=== PATIENT | male | born 1990 | race Caucasian/White ===

== ENCOUNTER 2018-11-23 13:01 | Emergency (ER) | payer BC ==
--- NOTE | 2018-11-23 13:53 | EDPHYS ---
Physician Documentation [facility] Name: Cuate Benson Age: 28 yrs Sex: Male : 1990 Arrival Date: 11/23/2018 Time: 13:05 Bed 10 Private MD: ED Physician Kristopher Lynne HPI: 11/23 13:43 This 28 yrs old Male presents to ER via Ambulatory with complaints of Sore jr8 Throat. 13:43 The patient presents with sore throat. The patient describes throat pain as raw. Onset: jr8 The symptoms/episode began/occurred acutely, yesterday. Severity of symptoms: At their worst the symptoms were mild, in the emergency department the symptoms are unchanged. Modifying factors: The symptoms are alleviated by nothing, the symptoms are aggravated by swallowing. Associated signs and symptoms: The patient has no apparent associated signs or symptoms. The patient has not experienced similar symptoms in the past. The patient has not recently seen a physician. Historical: - Allergies: 13:18 No Known Allergies; aj - Immunization history:: Adult Immunizations up to date. - Social history:: Smoking status: unknown. - Ebola Screening: : Patient denies exposure to infectious person Patient denies travel to an Ebola-affected area in the 21 days before illness onset. ROS: 13:43 Eyes: Negative for injury, pain, redness, and discharge, Neck: Negative for injury, jr8 pain, and swelling, Cardiovascular: Negative for chest pain, palpitations, and edema, Respiratory: Negative for shortness of breath, cough, wheezing, and pleuritic chest pain, Abdomen/GI: Negative for abdominal pain, nausea, vomiting, diarrhea, and constipation, Back: Negative for injury and pain, MS/Extremity: Negative for injury and deformity, Skin: Negative for injury, rash, and discoloration, Neuro: Negative for headache, weakness, numbness, tingling, and seizure. 13:43 ENT: Positive for sore throat, Negative for drainage from ear(s), ear pain, nasal discharge, rhinorrhea, sinus congestion, sinus pain, difficulty swallowing, difficulty handling secretions, hoarseness. Exam: 13:43 Eyes: Pupils equal round and reactive to light, extra-ocular motions intact. Lids and jr8 lashes normal. Conjunctiva and sclera are non-icteric and not injected. Cornea within normal limits. Periorbital areas with no swelling, redness, or edema. Neck: Trachea midline, no thyromegaly or masses palpated, and no cervical lymphadenopathy. Supple, full range of motion without nuchal rigidity, or vertebral point tenderness. No Meningismus. Cardiovascular: Regular rate and rhythm with a normal S1 and S2. No gallops, murmurs, or rubs. Normal PMI, no JVD. No pulse deficits. Respiratory: Lungs have equal breath sounds bilaterally, clear to auscultation and percussion. No rales, rhonchi or wheezes noted. No increased work of breathing, no retractions or nasal flaring. Abdomen/GI: Soft, non-tender, with normal bowel sounds. No distension or tympany. No guarding or rebound. No evidence of tenderness throughout. Back: No spinal tenderness. No costovertebral tenderness. Full range of motion. Skin: Warm, dry with normal turgor. Normal color with no rashes, no lesions, and no evidence of cellulitis. MS/ Extremity: Pulses equal, no cyanosis. Neurovascular intact. Full, normal range of motion. Neuro: Awake and alert, GCS 15, oriented to person, place, time, and situation. Cranial nerves II-XII grossly intact. Motor strength 5/5 in all extremities. Sensory grossly intact. Cerebellar exam normal. Normal gait. 13:43 ENT: Exam is negative for earache, ear discharge, TM abnormalities, nasal discharge, sinus tenderness, Mouth: Lips: moist, Oral mucosa: pink and intact, moist, Gums: pink, Tongue: is moist, Posterior pharynx: Airway: patent, Tonsils: bilaterally enlarged, with erythema, with exudate, no ulcerations, Uvula: midline, non-edematous, no erythema, swelling, is not appreciated, erythema, that is mild. Vital Signs: 13:18 BP 113 / 64; Pulse 89; Resp 17; Temp 99.7; Pulse Ox 99% on R/A; Weight 61.23 kg; Height aj 5 ft. 9 in. (175.26 cm); 13:18 Body Mass Index 19.94 (61.23 kg, 175.26 cm) aj MDM: 13:32 Patient medically screened. jr8 13:52 Data reviewed: vital signs, nurses notes, lab test result(s), strep positive. Data jr8 interpreted: Pulse oximetry: on room air is 99 %. Interpretation: normal. Counseling: I had a detailed discussion with the patient and/or guardian regarding: the historical points, exam findings, and any diagnostic results supporting the discharge/admit diagnosis, lab results, the need for outpatient follow up, a family practitioner, to return to the emergency department if symptoms worsen or persist or if there are any questions or concerns that arise at home. 11/23 13:20 Order name: Strep; Complete Time: 13:51 aj Administered Medications: No medications were administered Disposition: 14:10 Co-signature as Attending Physician, Kristopher Lynne MD I agree with the assessment and kdr plan of care. Disposition: 11/23/18 13:52 Discharged to Home. Impression: Acute streptococcal tonsillitis, unspecified. - Condition is Stable. - Discharge Instructions: Strep Throat. - Prescriptions for Augmentin 875- 125 mg Oral Tablet - take 1 tablet by ORAL route every 12 hours for 10 days; 20 tablet. - Medication Reconciliation Form, Thank You Letter, Antibiotic Education, Prescription Opioid Use form. - Follow up: Private Physician; When: 1 week; Reason: Recheck today's complaints, Continuance of care, Re-evaluation by your physician. - Problem is new. - Symptoms have improved. Signatures: Dispatcher [employer] EDAK Angelica Boggs RN RN aj Rittger, Kevin, MD MD [facility] Roshni Panda RN RN ss Roszak, Josh, PA PA jr8 Corrections: (The following items were deleted from the chart) 14:02 13:52 11/23/2018 13:52 Discharged to Home. Impression: Acute streptococcal tonsillitis, ss unspecified. Condition is Stable. Forms are Medication Reconciliation Form, Thank You Letter, Antibiotic Education, Prescription Opioid Use. Follow up: Private Physician; When: 1 week; Reason: Recheck today's complaints, Continuance of care, Re-evaluation by your physician. Problem is new. Symptoms have improved. jr8
--- NOTE | 2018-11-23 13:53 | ER ---
Nurse's Notes [facility] Name: Cuate Benson Age: 28 yrs Sex: Male : 1990 Arrival Date: 11/23/2018 Time: 13:05 Bed 10 Private MD: Diagnosis: Acute streptococcal tonsillitis, unspecified Presentation: 11/23 13:18 Presenting complaint: Patient states: Sore throat since yesterday. Transition of care: aj patient was not received from another setting of care. Onset of symptoms was November 22, 2018. Risk Assessment: Do you want to hurt yourself or someone else? Patient reports no desire to harm self or others. Initial Sepsis Screen: Does the patient meet any 2 criteria? No. Patient's initial sepsis screen is negative. Does the patient have a suspected source of infection? No. Patient's initial sepsis screen is negative. Care prior to arrival: None. 13:18 Method Of Arrival: Ambulatory 13:18 Acuity: KENIA 4 aj Triage Assessment: 13:18 General: Appears in no apparent distress. comfortable, Behavior is calm, cooperative. aj Pain: Complains of pain in left aspect of posterior pharynx and right aspect of posterior pharynx. EENT: Reports pain when swallowing. Respiratory: Airway is patent Respiratory effort is even, unlabored, Respiratory pattern is regular, symmetrical. Derm: Skin is intact, is healthy with good turgor, Skin is pink, warm \T\ dry. normal. Historical: - Allergies: 13:18 No Known Allergies; aj - Immunization history:: Adult Immunizations up to date. - Social history:: Smoking status: unknown. - Ebola Screening: : Patient denies exposure to infectious person Patient denies travel to an Ebola-affected area in the 21 days before illness onset. Screenin:00 Abuse screen: Denies threats or abuse. Denies injuries from another. Nutritional ss screening: No deficits noted. Tuberculosis screening: Never had TB. Fall Risk None identified. Assessment: 13:20 General: Appears in no apparent distress. comfortable, Behavior is calm, cooperative, ss Denies feeling ill, fatigue, chills. Pain: Complains of pain in throat. Neuro: Level of Consciousness is awake, alert, obeys commands. Respiratory: Airway is patent Respiratory effort is even, unlabored, Respiratory pattern is regular, symmetrical, Breath sounds are clear bilaterally. GI: Patient currently denies abdominal pain, diarrhea, nausea, vomiting. EENT: Throat is clear is reddened has enlarged tonsils. Derm: Skin is intact, is healthy with good turgor, Skin is pink, warm \T\ dry. normal. Musculoskeletal: Circulation, motion, and sensation intact. Range of motion: intact in all extremities. Vital Signs: 13:18 BP 113 / 64; Pulse 89; Resp 17; Temp 99.7; Pulse Ox 99% on R/A; Weight 61.23 kg; Height aj 5 ft. 9 in. (175.26 cm); 13:18 Body Mass Index 19.94 (61.23 kg, 175.26 cm) ED Course: 13:05 Patient arrived in ED. as 13:18 Triage completed. 13:18 Arm band placed on left wrist. 13:31 Paul Hayden PA is PHCP. [facility] 13:31 Kristopher Lynne MD is Attending Physician. [facility] 13:58 Roshni Panda, GAIL is Primary Nurse. 14:00 Patient has correct armband on for positive identification. Bed in low position. Call ss light in reach. 14:00 No provider procedures requiring assistance completed. Patient did not have IV access ss during this emergency room visit. Administered Medications: No medications were administered Outcome: 13:52 Discharge ordered by . [facility] 14:00 Discharged to home ambulatory. 14:00 Condition: good 14:00 Instructed on discharge instructions, follow up and referral plans. medication usage. 14:02 Patient left the ED. Signatures: Angelica Boggs RN RN aj Martinez, Amelia as Roshni Panda RN RN Paul Hayden PA PA [facility]
[2018-11-23 14:41] VITALS: BP 113/64; TEMP 99.7; O2SAT 99
== END 2018-11-23 14:02 | disposition home or self-care (01) ==
LOC: ER 13:01
DX: J03.00 Acute streptococcal tonsillitis, unspecified (principal)
CPT/HCPCS: 87081; 99281

== ENCOUNTER 2019-08-20 15:08 | Emergency (ER) | payer BC ==
--- NOTE | 2019-08-20 16:22 | RAD REPORT ---
EXAM DESCRIPTION: RAD - Chest Pa And Lat (2 Views) - 08/20/2019 3:37 pm CLINICAL HISTORY: Cough;Chest pain COMPARISON: None TECHNIQUE: Frontal and lateral views of the chest were obtained. FINDINGS: The lungs are clear. Heart size is normal and central vasculature is within normal limit s. No pleural effusion or pneumothorax seen. No acute bony finding noted. No aortic abnormality. IMPRESSION: No acute cardiopulmonary process.
--- NOTE | 2019-08-20 16:27 | EDPHYS ---
Physician Documentation [facility] Name: Cuate Benson Age: 29 yrs Sex: Male : 1990 Arrival Date: 08/20/2019 Time: 15:11 Bed 26 Private MD: ED Physician Eddy Zapata HPI: 08/19 15:28 This 29 yrs old Male presents to ER via Ambulatory with complaints of Cough, pm1 Chest Pain. 15:28 The patient or guardian reports cough, with no sputum. Onset: The symptoms/episode pm1 began/occurred 4 day(s) ago. Severity of symptoms: in the emergency department the symptoms are actually worse. Modifying factors: The symptoms are alleviated by nothing, the symptoms are aggravated by nothing. Associated signs and symptoms: Pertinent positives: chest pain, with cough, diarrhea, sore throat, Pertinent negatives: fever, vomiting. The patient has not experienced similar symptoms in the past. The patient has not recently seen a physician. Historical: - Allergies: 15:24 No Known Allergies; ll1 - PMHx: 15:24 None; ll1 - PSHx: 15:24 None; ll1 - Immunization history:: Flu vaccine status is unknown. - Social history:: Smoking status: Reported history of juuling and/or vaping. Patient/guardian denies using alcohol, street drugs. ROS: 15:28 Constitutional: Negative for fever, chills, and weight loss. pm1 15:28 Neck: Negative for injury, pain, and swelling, Cardiovascular: Negative for chest pain, palpitations, and edema, Respiratory: Negative for shortness of breath, cough, wheezing, and pleuritic chest pain. 15:28 Back: Negative for injury and pain, : Negative for injury, bleeding, discharge, and swelling, MS/Extremity: Negative for injury and deformity, Skin: Negative for injury, rash, and discoloration, Neuro: Negative for headache, weakness, numbness, tingling, and seizure. 15:28 ENT: Positive for sore throat, Negative for ear pain, difficulty swallowing, difficulty handling secretions, hoarseness. 15:28 Abdomen/GI: Positive for diarrhea, Negative for abdominal pain, nausea and vomiting, constipation. Exam: 15:28 Constitutional: This is a well developed, well nourished patient who is awake, alert, pm1 and in no acute distress. Head/Face: Normocephalic, atraumatic. 15:28 Chest/axilla: Normal chest wall appearance and motion. Nontender with no deformity. No lesions are appreciated. Cardiovascular: Regular rate and rhythm with a normal S1 and S2. No gallops, murmurs, or rubs. Normal PMI, no JVD. No pulse deficits. Respiratory: Lungs have equal breath sounds bilaterally, clear to auscultation and percussion. No rales, rhonchi or wheezes noted. No increased work of breathing, no retractions or nasal flaring. Abdomen/GI: Soft, non-tender, with normal bowel sounds. No distension or tympany. No guarding or rebound. No evidence of tenderness throughout. Back: No spinal tenderness. No costovertebral tenderness. Full range of motion. Skin: Warm, dry with normal turgor. Normal color with no rashes, no lesions, and no evidence of cellulitis. MS/ Extremity: Pulses equal, no cyanosis. Neurovascular intact. Full, normal range of motion. 15:28 ENT: External ear(s): are unremarkable, Ear canal(s): are normal, TM's: are normal, Posterior pharynx: Airway: no evidence of obstruction, Tonsils: bilaterally enlarged, with erythema, no exudate, no ulcerations, erythema, that is mild, peritonsillar mass, is not appreciated, pooling of secretions, is not appreciated. 15:28 Neuro: Orientation: is normal, Motor: is normal, moves all fours. Vital Signs: 15:19 Weight 61.23 kg; Height 5 ft. 10 in. (177.80 cm); Pain 6/10; ll1 15:26 BP 131 / 68; Pulse 73; Resp 15; Temp 99.0(O); Pulse Ox 100% ; lt1 17:00 BP 120 / 60; Pulse 70; Resp 16; Temp 98.0; Pulse Ox 99% ; ll1 15:19 Body Mass Index 19.37 (61.23 kg, 177.80 cm) ll1 MDM: 15:14 Patient medically screened. [facility] 16:26 Data reviewed: vital signs. Data interpreted: Pulse oximetry: on room air is 100 %. pm1 Interpretation: normal. Counseling: I had a detailed discussion with the patient and/or guardian regarding: the historical points, exam findings, and any diagnostic results supporting the discharge/admit diagnosis, lab results, radiology results, the need for outpatient follow up, to return to the emergency department if symptoms worsen or persist or if there are any questions or concerns that arise at home. 08/19 15:27 Order name: Flu; Complete Time: 16:24 pm1 08/19 15:27 Order name: Strep; Complete Time: 16:26 pm1 08/19 15:27 Order name: Chest Pa And Lat (2 Views) XRAY; Complete Time: 16:24 pm1 Administered Medications: No medications were administered Disposition: 08/20 10:36 Co-signature as Attending Physician, Eddy Zapata MD I agree with the assessment and kvaitha plan of care. Disposition: 08/20/19 16:26 Discharged to Home. Impression: Streptococcal pharyngitis. - Condition is Stable. - Discharge Instructions: Strep Throat. - Prescriptions for Amoxicillin 500 mg Oral Capsule - take 1 capsule by ORAL route every 8 hours for 10 days; 30 tablet. - Medication Reconciliation Form, Thank You Letter, Antibiotic Education, Prescription Opioid Use form. - Follow up: Emergency Department; When: As needed; Reason: Worsening of condition. Follow up: Private Physician; When: 2 - 3 days; Reason: Recheck today's complaints, Continuance of care, Re-evaluation by your physician. - Problem is new. - Symptoms have improved. Signatures: Dispatcher [employer] Eddy Parks MD MD cha Marinas, Patrick, EXECUTIVE OFFICE MANAGER EXECUTIVE OFFICE MANAGER pm1 Odilia Mccauley RN RN ll1 Corrections: (The following items were deleted from the chart) 08/19 17:29 16:26 08/20/2019 16:26 Discharged to Home. Impression: Streptococcal pharyngitis. ll1 Condition is Stable. Forms are Medication Reconciliation Form, Thank You Letter, Antibiotic Education, Prescription Opioid Use. Follow up: Emergency Department; When: As needed; Reason: Worsening of condition. Follow up: Private Physician; When: 2 - 3 days; Reason: Recheck today's complaints, Continuance of care, Re-evaluation by your physician. Problem is new. Symptoms have improved. pm1
--- NOTE | 2019-08-20 16:27 | ER ---
Nurse's Notes [facility] Name: Cuate Benson Age: 29 yrs Sex: Male : 1990 Arrival Date: 08/20/2019 Time: 15:11 Bed 26 Private MD: Diagnosis: Streptococcal pharyngitis Presentation: 08/19 15:19 Chief complaint: Patient states: MONTOYA, sore throat, and chest pain for 4 days getting ll1 progressively worse. Denies cough. No known fever. Diarrhea x 2 today. was sick 1-2 weeks ago. Coronavirus screen: The patient has NOT traveled to a country currently being monitored by the CDC within the last 14 days. Ebola Screen: Patient denies travel to an Ebola-affected area in the 21 days before illness onset. Initial Sepsis Screen: Does the patient meet any 2 criteria? No. Patient's initial sepsis screen is negative. Does the patient have a suspected source of infection? No. Patient's initial sepsis screen is negative. Risk Assessment: Do you want to hurt yourself or someone else? Patient reports no desire to harm self or others. 15:19 Method Of Arrival: Ambulatory [facility] 15:19 Acuity: KENIA 3 ll1 15:51 Onset of symptoms was August 16, 2019. 1 Triage Assessment: 15:25 General: Appears in no apparent distress. Behavior is calm, cooperative. Pain: 1 Complains of pain in head Pain currently is 6 out of 10 on a pain scale. Quality of pain is described as aching, Pain began 4 days ago. EENT: Reports + sore throat. Neuro: No deficits noted. Cardiovascular: Reports chest pain, fatigue, Heart tones S1 S2 Capillary refill < 3 seconds Clubbing of nail beds is absent JVD is absent Patient's skin is warm and dry. Pulses are 2+ in right radial artery and left radial artery. Respiratory: Airway is patent Trachea midline Respiratory effort is even, unlabored, Respiratory pattern is regular, symmetrical, Breath sounds are clear bilaterally. Denies cough. GI: Abdomen is Bowel sounds present X 4 quads. Abd is soft and non tender X 4 quads. Reports diarrhea. Historical: - Allergies: 15:24 No Known Allergies; ll1 - PMHx: 15:24 None; ll1 - PSHx: 15:24 None; ll1 - Immunization history:: Flu vaccine status is unknown. - Social history:: Smoking status: Reported history of juuling and/or vaping. Patient/guardian denies using alcohol, street drugs. Screenin:25 Abuse screen: Denies threats or abuse. Nutritional screening: No deficits noted. ll1 Tuberculosis screening: No symptoms or risk factors identified. Fall Risk None identified. Total Kang Fall Scale indicates No Risk (0-24 pts). Assessment: 15:28 General: Appears in no apparent distress. Behavior is calm, cooperative. General: See ll1 triage assessment for further details.. Pain: Complains of pain in head Pain currently is 6 out of 10 on a pain scale. Quality of pain is described as aching. Neuro: Reports headache. Cardiovascular: Reports chest pain. Respiratory: Denies cough. GI: Reports diarrhea. 15:52 Pain: Pain does not radiate. ll1 16:30 Reassessment: No changes from previously documented assessment. Patient and/or family ll1 updated on plan of care and expected duration. Pain level reassessed. Patient is alert, oriented x 3, equal unlabored respirations, skin warm/dry/pink. Vital Signs: 15:19 Weight 61.23 kg; Height 5 ft. 10 in. (177.80 cm); Pain 6/10; ll1 15:26 BP 131 / 68; Pulse 73; Resp 15; Temp 99.0(O); Pulse Ox 100% ; lt1 17:00 BP 120 / 60; Pulse 70; Resp 16; Temp 98.0; Pulse Ox 99% ; ll1 15:19 Body Mass Index 19.37 (61.23 kg, 177.80 cm) ll1 ED Course: 15:11 Patient arrived in ED. mr 15:13 Robert Alfaro, DANIEL is PHCP. pm1 15:13 Eddy Zapata MD is Attending Physician. pm1 15:16 Odilia Mccauley, GAIL is Primary Nurse. ll1 15:23 Triage completed. ll1 15:30 Arm band placed on. ll1 15:30 Patient has correct armband on for positive identification. Bed in low position. Call ll1 light in reach. Side rails up X 1. Pulse ox on. NIBP on. 15:31 No provider procedures requiring assistance completed. Patient maintains SpO2 ll1 saturation greater than 95% on room air. 15:39 Chest Pa And Lat (2 Views) XRAY In Process Unspecified. EDMS 17:00 Patient did not have IV access during this emergency room visit. ll1 Administered Medications: No medications were administered Outcome: 16:26 Discharge ordered by . pm1 17:00 Discharged to home ambulatory. ll1 17:00 Condition: good 17:00 Discharge instructions given to patient, Instructed on discharge instructions, follow up and referral plans. medication usage, Demonstrated understanding of instructions, follow-up care, medications, Prescriptions given X 1. 17:29 Patient left the ED. ll1 Signatures: Dispatcher [employer] [facility] Tim Melvi AlfaroRobert, WOUND CARE COORDINATOR WOUND CARE COORDINATOR pm1 Rhina Lizama lt1 Odilia Mccauley, RN RN ll1 Corrections: (The following items were deleted from the chart) 17:28 17:27 BP 120 / 60; Pulse 70bpm; Resp 16bpm; Pulse Ox 99%; Temp 98.0F; ll1 ll1
[2019-08-20 17:42] VITALS: BP 120/60; TEMP 98; O2SAT 99
== END 2019-08-20 17:29 | disposition home or self-care (01) ==
LOC: ER 15:08
DX: J02.0 Streptococcal pharyngitis (principal)
CPT/HCPCS: 71046; 87081; 87804; 99284

== ENCOUNTER 2019-08-28 17:43 | Emergency (ER) | payer BC ==
--- NOTE | 2019-08-28 18:59 | ER ---
Nurse's Notes [facility] Name: Cuate Benson Age: 29 yrs Sex: Male : 1990 Arrival Date: 08/28/2019 Time: 17:46 Bed 27 Private MD: Diagnosis: Encounter for general adult medical examination Presentation: 08/27 17:57 Chief complaint: Patient states: "Went to a drug testing place for the plants. When ca1 they scanned for temperature, I had a temp of 100.6F. I have no cough, congestion or fever for the past days or any complains. I just need paperwork to got back to work". Coronavirus screen: Patient denies fever greater than 100.4F, cough, shortness of breath, or difficulty breathing. Proceed with normal triage process. Ebola Screen: Patient negative for fever greater than or equal to 101.5 degrees Fahrenheit, and additional compatible Ebola Virus Disease symptoms Patient denies exposure to infectious person. Patient denies travel to an Ebola-affected area in the 21 days before illness onset. No symptoms or risks identified at this time. Initial Sepsis Screen: Does the patient meet any 2 criteria? No. Patient's initial sepsis screen is negative. Does the patient have a suspected source of infection? No. Patient's initial sepsis screen is negative. Risk Assessment: Do you want to hurt yourself or someone else? Patient reports no desire to harm self or others. Onset of symptoms was August 28, 2019. 17:57 Method Of Arrival: Ambulatory ca1 17:57 Acuity: KENIA 5 ca1 Historical: - Allergies: 18:04 No Known Allergies; ca1 - Home Meds: 18:04 None [Active]; ca1 - PMHx: 18:04 None; ca1 - PSHx: 18:04 hip R surgery; ca1 - Immunization history:: Adult Immunizations up to date, Flu vaccine is up to date. - Social history:: Smoking status: Patient denies any tobacco usage or history of. Patient/guardian denies using alcohol, street drugs, The patient lives with family. - Family history:: not pertinent. Screenin:36 Abuse screen: Denies threats or abuse. Nutritional screening: No deficits noted. ll1 Tuberculosis screening: No symptoms or risk factors identified. Fall Risk None identified. Total Kang Fall Scale indicates No Risk (0-24 pts). Assessment: 18:35 General: Appears in no apparent distress. Behavior is calm, cooperative. General: needs ll1 work release. Denies symptoms.. Pain: Denies pain. Neuro: No deficits noted. Cardiovascular: No deficits noted. Respiratory: No deficits noted. GI: No deficits noted. Vital Signs: 17:57 BP 123 / 77; Pulse 81; Resp 17 S; Temp 98.7; Pulse Ox 99% on R/A; Weight 65.77 kg (R); ca1 Height 5 ft. 9 in. (175.26 cm) (R); Pain 0/10; 17:57 Body Mass Index 21.41 (65.77 kg, 175.26 cm) ca1 ED Course: 17:46 Patient arrived in ED. mr 18:02 Triage completed. ca1 18:04 Arm band placed on right wrist. ca1 18:34 Odilia Mccauley, RN is Primary Nurse. ll1 18:34 Clay Schmidt MD is Attending Physician. ma2 18:36 Patient has correct armband on for positive identification. Bed in low position. Call ll1 light in reach. Side rails up X 1. 19:15 No provider procedures requiring assistance completed. Patient did not have IV access ll1 during this emergency room visit. Administered Medications: No medications were administered Outcome: 18:57 Discharge ordered by . ma2 19:15 Discharged to home ambulatory. ll1 19:15 Condition: good 19:15 Discharge instructions given to patient, Instructed on discharge instructions, follow up and referral plans. Demonstrated understanding of instructions, follow-up care. 19:15 Patient left the ED. ll1 Signatures: Melvi Dumont mr Clay Schmidt MD MD ma2 Kyara Gonzalez RN RN ca1 Odilia Mccauley RN RN ll1
--- NOTE | 2019-08-28 19:00 | EDPHYS ---
Physician Documentation [facility] Name: Cuate Benson Age: 29 yrs Sex: Male : 1990 Arrival Date: 08/28/2019 Time: 17:46 Bed 27 Private MD: ED Physician Clay Schmidt HPI: 08/27 18:53 This 29 yrs old Male presents to ER via Ambulatory with complaints of Fever. ma2 18:53 The patient reports fever, no fever. Associated signs and symptoms: Pertinent ma2 negatives: abdominal pain, backache, diarrhea, runny nose, skin rash. Severity of symptoms: At their worst the symptoms were none, in the emergency department the symptoms are unchanged. The patient has not experienced similar symptoms in the past. patient does not have any symptoms, no fever either, his work want him to be cleared . Historical: - Allergies: 18:04 No Known Allergies; ca1 - Home Meds: 18:04 None [Active]; ca1 - PMHx: 18:04 None; ca1 - PSHx: 18:04 hip R surgery; ca1 - Immunization history:: Adult Immunizations up to date, Flu vaccine is up to date. - Social history:: Smoking status: Patient denies any tobacco usage or history of. Patient/guardian denies using alcohol, street drugs, The patient lives with family. - Family history:: not pertinent. ROS: 18:53 Constitutional: Negative for fever, chills, and weight loss. ma2 18:53 All other systems are negative. Exam: 18:53 Constitutional: This is a well developed, well nourished patient who is awake, alert, ma2 and in no acute distress. Head/Face: Normocephalic, atraumatic. Eyes: Pupils equal round and reactive to light, extra-ocular motions intact. Lids and lashes normal. Conjunctiva and sclera are non-icteric and not injected. Cornea within normal limits. Periorbital areas with no swelling, redness, or edema. ENT: Nares patent. No nasal discharge, no septal abnormalities noted. Tympanic membranes are normal and external auditory canals are clear. Oropharynx with no redness, swelling, or masses, exudates, or evidence of obstruction, uvula midline. Mucous membranes moist. Neck: Trachea midline, no thyromegaly or masses palpated, and no cervical lymphadenopathy. Supple, full range of motion without nuchal rigidity, or vertebral point tenderness. No Meningismus. Chest/axilla: Normal chest wall appearance and motion. Nontender with no deformity. No lesions are appreciated. Cardiovascular: Regular rate and rhythm with a normal S1 and S2. No gallops, murmurs, or rubs. Normal PMI, no JVD. No pulse deficits. Respiratory: Lungs have equal breath sounds bilaterally, clear to auscultation and percussion. No rales, rhonchi or wheezes noted. No increased work of breathing, no retractions or nasal flaring. Abdomen/GI: Soft, non-tender, with normal bowel sounds. No distension or tympany. No guarding or rebound. No evidence of tenderness throughout. Vital Signs: 17:57 BP 123 / 77; Pulse 81; Resp 17 S; Temp 98.7; Pulse Ox 99% on R/A; Weight 65.77 kg (R); ca1 Height 5 ft. 9 in. (175.26 cm) (R); Pain 0/10; 17:57 Body Mass Index 21.41 (65.77 kg, 175.26 cm) ca1 MDM: 18:34 Patient medically screened. ma2 18:53 Differential diagnosis: none. Data reviewed: vital signs, nurses notes. Counseling: I ma2 had a detailed discussion with the patient and/or guardian regarding: the historical points, exam findings, and any diagnostic results supporting the discharge/admit diagnosis, the presence of at least one elevated blood pressure reading (>120/80) during this emergency department visit. Response to treatment: There is no appreciated change of the patient's symptoms at this time. Administered Medications: No medications were administered Disposition: 08/28/19 18:57 Discharged to Home. Impression: Encounter for general adult medical examination. - Condition is Stable. - Discharge Instructions: Form - Return To Work. - Medication Reconciliation Form, Thank You Letter, Antibiotic Education, Prescription Opioid Use form. - Follow up: Private Physician; When: Tomorrow; Reason: Continuance of care. Signatures: Clay Schmidt MD MD ma2 Kyara Gonzalez RN RN ca1 Odilia Mccauley RN RN ll1 Corrections: (The following items were deleted from the chart) 19:15 18:57 08/28/2019 18:57 Discharged to Home. Impression: Encounter for general adult ll1 medical examination. Condition is Stable. Forms are Medication Reconciliation Form, Thank You Letter, Antibiotic Education, Prescription Opioid Use. Follow up: Private Physician; When: Tomorrow; Reason: Continuance of care. ma2
[2019-08-28 19:57] VITALS: BP 123/77; TEMP 98.7; O2SAT 99
== END 2019-08-28 19:15 | disposition home or self-care (01) ==
LOC: ER 17:43
DX: Z00.00 Encounter for general adult medical examination without abnormal findings (principal)
CPT/HCPCS: 99281